=== PATIENT | male | born 1975 | race Caucasian/White ===

== ENCOUNTER 2025-01-13 15:38 | Emergency (ER) | payer BC ==
[2025-01-13 16:10] VITALS: RESP 16; BMI 26.5
[2025-01-13] MEDS ORDERED: KETOROLAC TROMETHAMINE 30 MG/1 ML VIAL ONE (16:19)
[2025-01-13] MEDS ORDERED: ACETAMINOPHEN INJECTION 100 ML ONE (16:19)
[2025-01-13] MEDS: ACETAMINOPHEN 1000 MG/100 ML BAG IVPB ONE (16:27)
[2025-01-13] MEDS: KETOROLAC TROMETHAMINE 30 MG/1 ML VIAL IVPUSH ONE (16:27)
[2025-01-13] MEDS: SODIUM CHLORIDE 1,000 ML IV ONE (16:27)
[2025-01-13 16:31] LABS: BASOPHILS # 0.02 x10^3/uL (0.01-0.08); EOSINOPHIL % 4.9 % (0.8-7.0); EOSINOPHILS # 0.24 x10^3/uL (0.04-0.54); HEMATOCRIT 41.8 % (40.1-51.0); HEMOGLOBIN 14.2 g/dL (13.7-17.5); MEAN CELL VOLUME 80.7 fl (79.0-92.2); MEAN PLT VOLUME 9.5 fl (9.4-12.4); MONOCYTE # 0.39 x10^3/uL (0.30-0.82); MONOCYTE % 7.9 % (5.3-12.2); PLATELET COUNT 212 x10^3/uL (163-337); RDW 12.8 % (12.1-15.9)
[2025-01-13 17:03] LABS: ALBUMIN 4.6 g/dl (3.4-5.0); BILIRUBIN,TOTAL 0.7 mg/dl (0.2-1); CALCIUM 9.6 mg/dl (8.5-10.1); CREATININE 1.3 mg/dl (0.6-1.3); POTASSIUM 3.6 mmol/L (3.5-5.1); TOT PROT 6.8 g/dl (6.4-8.2)
[2025-01-13] MEDS ORDERED: TAMSULOSIN HCL 0.4 MG CAP ONE (17:46)
[2025-01-13 17:47] VITALS: BP 127/102; PULSE 69; TEMP 98.4
[2025-01-13] MEDS: TAMSULOSIN HCL 0.4 MG CAP PO ONE (17:49)
== END 2025-01-13 17:54 | disposition home or self-care (01) ==
LOC: FER 15:38
PROC: 3E033NZ Introduction of Analgesics, Hypnotics, Sedatives into Peripheral Vein, Percutaneous Approach (ICD-10-PCS; principal; 2025-01-13)
PROC: 3E0333Z Introduction of Anti-inflammatory into Peripheral Vein, Percutaneous Approach (ICD-10-PCS; 2025-01-13)
PROC: 3E0337Z Introduction of Electrolytic and Water Balance Substance into Peripheral Vein, Percutaneous Approach (ICD-10-PCS; 2025-01-13)
DX: N13.2 Hydronephrosis with renal and ureteral calculous obstruction (principal); R39.11 Hesitancy of micturition; R10.9 Unspecified abdominal pain
CPT/HCPCS: 36415; 74176-TC; 80053; 81003; 81015; 85025; 85730; 86850; 86900; 86901; 87086; 99285-25; J0131